=== PATIENT | female | born 1995 | race Two or more races ===

== ENCOUNTER 2023-11-13 14:57 | Outpatient (CLI) | payer MEDICAID, SELFPAY | END 2023-11-13 14:58 | disposition home or self-care (01) | LOC: NFLDREF 15:00 | PROVIDERS: PCP Family Medicine; Visit Provider Family Medicine | DX: R63.5 Abnormal weight gain (principal) | CPT/HCPCS: 84443 ==

== ENCOUNTER 2023-12-06 14:15 | Outpatient (CLI) | payer MEDICAID, SELFPAY | END 2023-12-06 14:16 | disposition home or self-care (01) | PROVIDERS: PCP Family Medicine; Visit Provider Obstetrics & Gynecology | DX: N91.1 Secondary amenorrhea (principal); E66.9 Obesity, unspecified | CPT/HCPCS: 82670; 83001; 83498; 84146; 84270; 84402; 84403 ==

== ENCOUNTER 2025-02-22 13:47 | Emergency (ER) | payer OTHER, SELFPAY ==
[2025-02-22 13:55] VITALS: BP 171/126; PULSE 91; RESP 18; TEMP 36.1; O2SAT 97; BMI 33.2
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
[2025-02-22 14:54] LABS: Ur HCG Qualitative* Negative (Negative)
[2025-02-22 15:02] LABS: Cannabinoid Screen Urine Negative (Negative); Methamphetamines Screen Urine Negative (Negative); Tricyclic Antidepressant Urine Negative (Negative)
[2025-02-22 15:57] LABS: Hematocrit 44.8 % (33.0-51.0); Hemoglobin* 14.6 gm/dL (12.0-16.0); Immature Granulocytes Abs Auto 0.01 K/uL (0.00-0.30); Immature Granulocytes Pct Auto 0.2 %; Mean Corpuscular HGB Conc 33 gm/dL (32-36); Mean Corpuscular Hemoglobin 29 pg (26-34); Mean Corpuscular Volume 90 fL (80-100); RDW Coefficient of Variation % 13.2 % (11.5-15.5); Red Blood Count 4.97 m/uL (4.00-5.20); White Blood Count* 6.31 K/uL (4.50-11.00)
[2025-02-22 16:04] LABS: Lymphocytes Absolute Auto 2.80 K/uL (0.90-2.90)
[2025-02-22 16:10] LABS: Albumin* 4.7 g/dL (3.3-5.0); Chloride* 106 mmol/L (96-114); Potassium* 4.2 mmol/L (3.6-5.1); Sodium* 145 mmol/L (135-149)
[2025-02-22 16:12] LABS: Blood Urea Nitrogen* 5 mg/dL (5-24); Creatinine* 0.5 mg/dL (0.5-1.5); Est. Creatinine Clearance* 118.17; Estimated Glomerular Filt Rate 129 ml/min
[2025-02-22 16:13] LABS: Alanine Aminotransferase* 256 U/L (4-35); Alkaline Phosphatase* 92 U/L (40-150); Anion Gap 10 mEq/L (7-15); Aspartate Amino Transferase* 158 U/L (12-35); Bilirubin Total* 0.3 mg/dL (0.1-1.5); Calcium* 9.6 mg/dL (8.4-10.6); Carbon Dioxide* 29 mmol/L (20-32); Glucose* 102 mg/dL (60-115); Total Protein* 8.2 g/dL (6.0-8.3)
[2025-02-22 16:14] LABS: Acetaminophen* < 10.0 ug/mL (10.0-30.0); Salicylate* < 1.0 mg/dL (1.0-10)
[2025-02-22 16:19] LABS: Slide Review Reflex No
[2025-02-22 16:22] LABS: Ethanol* 0.31 % (0.01-0.03)
[2025-02-22 17:47] LABS: TSH With Reflex to FT4* 1.860 uIU/mL (0.270-4.200)
[2025-02-22 23:31] VITALS: BP 145/104; PULSE 107; RESP 16; TEMP 36.5; O2SAT 96
[2025-02-23 02:00] VITALS: RESP 18
[2025-02-23 06:29] VITALS: RESP 18
[2025-02-23 08:43] VITALS: BP 153/117; PULSE 75; RESP 18; O2SAT 97
[2025-02-23 09:03] LABS: Ethanol* < 0.01 % (0.01-0.03)
[2025-02-23 11:47] VITALS: BP 175/128; PULSE 97; RESP 16; TEMP 36.8; O2SAT 98
== END 2025-02-23 13:06 ==
PROVIDERS: Emergency Provider Family Medicine; PCP Family Medicine
DX: R45.851 Suicidal ideations (principal); F10.129 Alcohol abuse with intoxication, unspecified; F32.A Depression, unspecified
CPT/HCPCS: 36415; 80053; 80143; 80179; 80306; 81025; 82077; 84443; 85025; 99284; 99285; Q3014

== ENCOUNTER 2025-02-23 12:45 | Outpatient (CLI) | payer OTHER, SELFPAY | END 2025-02-23 12:46 | disposition home or self-care (01) | LOC: AMB 02-25 10:54 | PROVIDERS: PCP Family Medicine; Visit Provider Family Medicine | DX: F32.A Depression, unspecified (principal); R45.851 Suicidal ideations | CPT/HCPCS: A0425; A0428 ==